=== PATIENT | female | born 1960 | race Caucasian/White ===

== ENCOUNTER 2018-03-23 09:14 | Emergency (ER) | payer MEDICAID ==
[~2018-03-23] VITALS: Ht 165.1 cm; Wt 50.0 kg
[2018-03-23] MEDS ORDERED: SODIUM CHLORIDE 0.9% 1,000 ML IV ONE (10:54)
[2018-03-23] MEDS ORDERED: ONDANSETRON HCL 4MG/2ML VIAL IV STA (10:54)
[2018-03-23] MEDS ORDERED: KETOROLAC 30MG/ML VIAL IV STA (10:54)
[2018-03-23] MEDS ORDERED: MORPHINE SULFATE 4 MG/ML CPJ (NOT FOR IM USE) IV STA (10:54)
[2018-03-23] MEDS ORDERED: FAMOTIDINE 20MG/2ML VIAL IV ONE (11:00)
[2018-03-23] MEDS ORDERED: MAGNESIUM/ALUMINUM HYDROXIDE/SIMETHICONE 30ML UDC PO ONE (11:00)
[2018-03-23 11:51] LABS: CLARITY URINE CLOUDY (CLEAR); COLOR URINE YELLOW (YELLOW); KETONES URINE NEGATIVE (NEGATIVE); LEUKOCYTE ESTERASE URINE 1+ (NEGATIVE); NITRITE URINE NEGATIVE (NEGATIVE); OCCULT BLOOD URINE TRACE (NEGATIVE); PROTEIN URINE TRACE (NEGATIVE); SPECIFIC GRAVITY URINE 1.022 (1.005-1.030)
[2018-03-23 13:10] LABS: BASOPHILS % 0.5 % (0.0-2.0); EOSINOPHILS % 0.9 % (0.0-5.0); HEMATOCRIT. 33.7 % (36.0-48.0); LYMPHOCYTES % 21.2 % (20.0-50.0); MEAN CORPUSCULAR HEMOGLOBIN 29.6 pg (28.0-32.0); MEAN CORPUSCULAR VOLUME 90.5 fL (81.0-99.0); MEAN PLATELET VOLUME 6.7 fl (7.4-10.4); MONOCYTES % 6.1 % (2.0-8.0); NEUTROPHILS % 71.3 % (40.0-76.0); PLATELET 307 x1000/uL (130-400); RED BLOOD CELL COUNT 3.73 mill/uL (4.2-5.4); RED CELL DISTRIBUTION WIDTH 14.9 % (11.6-14.6)
[2018-03-23 13:14] LABS: CHLORIDE 109 mEq/L (98-107)
[2018-03-23 13:27] LABS: INR 1.1; PARTIAL THROMBOPLASTIN TIME 26.8 sec (23.4-31.0); PROTHROMBIN TIME 11.4 sec (9.1-11.1)
[2018-03-23 15:00] VITALS: BP 109/64
== END 2018-03-23 15:30 | disposition home or self-care (01) ==
LOC: ER 09:14
DX: R10.13 Epigastric pain (principal); E83.51 Hypocalcemia; K29.70 Gastritis, unspecified, without bleeding; N39.0 Urinary tract infection, site not specified; Z98.890 Other specified postprocedural states
CPT/HCPCS: 36415; 71045; 76700; 80053; 81003; 83880; 84484; 85025; 85610; 85730; 87086; 93005; 96374; 96375; 99285; J1885; J2270; J2405; J3490; J7030

== ENCOUNTER 2018-08-17 11:52 | Emergency (ER) | payer MEDICAID ==
[~2018-08-17] VITALS: Ht 165.1 cm; Wt 50.0 kg
[2018-08-17] MEDS ORDERED: FAMO-133 PO (12:02)
[2018-08-17] MEDS ORDERED: FAMOTIDINE 20MG/2ML VIAL IV STA (12:21)
[2018-08-17] MEDS ORDERED: KETOROLAC 30MG/ML VIAL IV STA (12:21)
[2018-08-17] MEDS ORDERED: ONDANSETRON HCL 4MG/2ML INJ IV STA (12:21)
[2018-08-17] MEDS ORDERED: SUCRALFATE 1 G/10 ML UDC PO ONE (12:30)
[2018-08-17 13:00] LABS: BASOPHILS % 0.4 % (0.0-2.0); EOSINOPHILS % 1.3 % (0.0-5.0); HEMATOCRIT. 37.9 % (36.0-48.0); HEMOGLOBIN. 12.4 g/dL (12.0-16.0); MEAN CORPUSCULAR HEMOGLOBIN 30.3 pg (28.0-32.0); MEAN CORPUSCULAR VOLUME 92.2 fL (81.0-99.0); MEAN PLATELET VOLUME 6.9 fl (7.4-10.4); MONOCYTES % 6.7 % (2.0-8.0); NEUTROPHILS % 69.6 % (40.0-76.0); PLATELET 393 x1000/uL (130-400); RED BLOOD CELL COUNT 4.11 mill/uL (4.2-5.4); RED CELL DISTRIBUTION WIDTH 13.7 % (11.6-14.6)
[2018-08-17 13:03] LABS: CLARITY URINE CLEAR (CLEAR); COLOR URINE YELLOW (YELLOW); KETONES URINE TRACE (NEGATIVE); LEUKOCYTE ESTERASE URINE NEGATIVE (NEGATIVE); NITRITE URINE NEGATIVE (NEGATIVE); OCCULT BLOOD URINE TRACE (NEGATIVE); PROTEIN URINE TRACE (NEGATIVE); SPECIFIC GRAVITY URINE 1.026 (1.005-1.030)
[2018-08-17 13:06] LABS: CHLORIDE 102 mEq/L (98-107)
[2018-08-17 13:08] LABS: INR 1.1; PROTHROMBIN TIME 10.6 sec (9.1-11.1)
[2018-08-17] MEDS ORDERED: DIPHENHYDRAMINE 25MG CAPSULE PO ONE (13:15)
[2018-08-17 14:19] VITALS: BP 114/57
== END 2018-08-17 14:19 | disposition home or self-care (01) ==
LOC: ER 13:27
DX: K27.9 Peptic ulcer, site unspecified, unspecified as acute or chronic, without hemorrhage or perforation (principal); Z98.890 Other specified postprocedural states
CPT/HCPCS: 36415; 80053; 81003; 83690; 85025; 85610; 96374; 96375; 99283; J1885; J2405; J3490; Q0163

== ENCOUNTER 2019-01-25 10:03 | Emergency (ER) | payer MEDICAID ==
[~2019-01-25] VITALS: Ht 165.1 cm; Wt 55.0 kg
[~2019-01-25 10:03] MED LIST: FAMO-133 PO
[2019-01-25] MEDS ORDERED: FAMOTIDINE 20MG/2ML VIAL IV STA (11:13)
[2019-01-25] MEDS ORDERED: MAGNESIUM/ALUMINUM HYDROXIDE/SIMETHICONE 30ML UDC PO STA (11:13)
[2019-01-25 11:33] LABS: BASOPHILS % 0.6 % (0.0-2.0); EOSINOPHILS % 0.9 % (0.0-5.0); HEMATOCRIT. 35.2 % (36.0-48.0); HEMOGLOBIN. 11.7 g/dL (12.0-16.0); LYMPHOCYTES % 18.1 % (20.0-50.0); MEAN CORPUSCULAR HEMOGLOBIN 30.3 pg (28.0-32.0); MEAN CORPUSCULAR VOLUME 90.8 fL (81.0-99.0); MEAN PLATELET VOLUME 6.5 fl (7.4-10.4); MONOCYTES % 6.3 % (2.0-8.0); NEUTROPHILS % 74.1 % (40.0-76.0); PLATELET 355 x1000/uL (130-400); RED BLOOD CELL COUNT 3.87 mill/uL (4.2-5.4); RED CELL DISTRIBUTION WIDTH 14.6 % (11.6-14.6)
[2019-01-25 11:41] LABS: CHLORIDE 109 mEq/L (98-107)
[2019-01-25 11:42] LABS: PROTHROMBIN TIME 10.6 sec (9.6-11.0)
[2019-01-25 12:08] LABS: CLARITY URINE CLEAR (CLEAR); COLOR URINE YELLOW (YELLOW); KETONES URINE TRACE (NEGATIVE); LEUKOCYTE ESTERASE URINE NEGATIVE (NEGATIVE); NITRITE URINE NEGATIVE (NEGATIVE); OCCULT BLOOD URINE NEGATIVE (NEGATIVE); PROTEIN URINE NEGATIVE (NEGATIVE); SPECIFIC GRAVITY URINE 1.025 (1.005-1.030)
[2019-01-25 14:25] VITALS: BP 118/58
== END 2019-01-25 14:22 | disposition home or self-care (01) ==
LOC: ER 10:03
DX: J94.8 Other specified pleural conditions (principal); G89.29 Other chronic pain; R10.13 Epigastric pain; L29.2 Pruritus vulvae; Z87.891 Personal history of nicotine dependence; Z79.899 Other long term (current) drug therapy; Z98.890 Other specified postprocedural states
CPT/HCPCS: 36415; 71045; 74176; 80053; 81003; 83690; 85025; 85610; 96374; 99284; J3490; Z7610

== ENCOUNTER 2019-10-13 10:38 | Emergency (ER) | payer MEDICAID ==
[~2019-10-13] VITALS: Ht 165.1 cm; Wt 50.0 kg
[2019-10-13 10:48] VITALS: BP 109/62
[2019-10-13 11:21] LABS: CLARITY URINE CLEAR (CLEAR); COLOR URINE YELLOW (YELLOW); KETONES URINE TRACE (NEGATIVE); LEUKOCYTE ESTERASE URINE NEGATIVE (NEGATIVE); NITRITE URINE NEGATIVE (NEGATIVE); OCCULT BLOOD URINE NEGATIVE (NEGATIVE); PROTEIN URINE NEGATIVE (NEGATIVE); SPECIFIC GRAVITY URINE 1.023 (1.005-1.030)
[2019-10-13 11:33] LABS: CHLORIDE 105 mEq/L (98-107)
[2019-10-13 11:34] LABS: PROTHROMBIN TIME 10.9 sec (9.6-11.0)
[2019-10-13 11:39] LABS: BASOPHILS % 0.5 % (0.0-2.0); HEMATOCRIT. 37.8 % (36.0-48.0); HEMOGLOBIN. 12.7 g/dL (12.0-16.0); LYMPHOCYTES % 24.3 % (20.0-50.0); MEAN CORPUSCULAR HEMOGLOBIN 30.7 pg (28.0-32.0); MEAN CORPUSCULAR VOLUME 91.5 fL (81.0-99.0); MEAN PLATELET VOLUME 6.7 fl (7.4-10.4); MONOCYTES % 6.4 % (2.0-8.0); NEUTROPHILS % 67.8 % (40.0-76.0); PLATELET 364 x1000/uL (130-400); RED BLOOD CELL COUNT 4.14 mill/uL (4.2-5.4); RED CELL DISTRIBUTION WIDTH 13.9 % (11.6-14.6)
[2019-10-13] MEDS ORDERED: ONDANSETRON HCL 4MG TABLET PO ONE (11:45)
[2019-10-13] MEDS ORDERED: ACETAMINOPHEN 325MG TABLET PO ONE (11:45)
== END 2019-10-13 12:29 | disposition left against medical advice (07) ==
LOC: ER 10:45
DX: R10.13 Epigastric pain (principal); Z87.11 Personal history of peptic ulcer disease; Z98.890 Other specified postprocedural states
CPT/HCPCS: 36415; 80053; 81003; 85025; 99283; Q0162

== ENCOUNTER 2021-10-08 10:26 | Emergency (ER) | payer MEDICAID ==
[~2021-10-08] VITALS: Ht 165.1 cm; Wt 54.0 kg
[~2021-10-08 10:26] MED LIST changes: -FAMO-133 PO; +FAMO-287 PO
[2021-10-08] MEDS ORDERED: FAMOTIDINE 20MG/2ML VIAL IV STA (11:15)
[2021-10-08] MEDS ORDERED: VISCOUS LIDOCAINE 2% 15 ML UDC PO STA (11:15)
[2021-10-08] MEDS ORDERED: MORPHINE SULFATE 4 MG/ML CPJ (NOT FOR IM USE) IV STA (11:15)
[2021-10-08] MEDS ORDERED: SODIUM CHLORIDE 0.9% 500 ML IV ONE (11:15)
[2021-10-08] MEDS ORDERED: MAGNESIUM/ALUMINUM HYDROXIDE/SIMETHICONE 30ML UDC PO STA (11:15)
[2021-10-08 11:42] LABS: CHLORIDE 105 mEq/L (98-107)
[2021-10-08 11:46] LABS: BASOPHILS % 0.5 % (0.0-2.0); EOSINOPHILS % 3.3 % (0.0-5.0); HEMATOCRIT. 37.1 % (36.0-48.0); HEMOGLOBIN. 12.2 g/dL (12.0-16.0); LYMPHOCYTES % 19.1 % (20.0-50.0); MEAN CORPUSCULAR HEMOGLOBIN 30.1 pg (28.0-32.0); MEAN CORPUSCULAR VOLUME 91.3 fL (81.0-99.0); MEAN PLATELET VOLUME 6.9 fl (7.4-10.4); MONOCYTES % 5.6 % (2.0-8.0); NEUTROPHILS % 71.5 % (40.0-76.0); PLATELET 344 x1000/uL (130-400); RED BLOOD CELL COUNT 4.06 mill/uL (4.2-5.4); RED CELL DISTRIBUTION WIDTH 14.1 % (11.6-14.6)
[2021-10-08] MEDS ORDERED: FAMO-135 MT (13:31)
[2021-10-08 14:11] VITALS: BP 121/68
== END 2021-10-08 14:11 | disposition home or self-care (01) ==
LOC: ER 10:26
DX: K29.70 Gastritis, unspecified, without bleeding (principal); F17.200 Nicotine dependence, unspecified, uncomplicated; Z98.890 Other specified postprocedural states
CPT/HCPCS: 36415; 71045; 76705; 80053; 83690; 83880; 84484; 85025; 96361; 96374; 96375; 99285; J2270; J3490; J7030

== ENCOUNTER 2021-12-12 11:37 | Emergency (ER) | payer MEDICAID ==
[~2021-12-12] VITALS: Ht 165.1 cm; Wt 48.0 kg
[~2021-12-12 11:37] MED LIST changes: +FAMO-135 MT
[2021-12-12 11:51] VITALS: BP 102/55
[2021-12-12] MEDS ORDERED: IBUPROFEN 400MG TABLET PO ONE (13:00)
[2021-12-12] MEDS ORDERED: IBUP-2028 MT (14:33)
== END 2021-12-12 15:08 | disposition home or self-care (01) ==
LOC: ER 11:37
DX: M79.672 Pain in left foot (principal)
CPT/HCPCS: 73630; 99283; Z7610

== ENCOUNTER 2021-12-31 11:06 | Emergency (ER) | payer MEDICAID ==
[~2021-12-31] VITALS: Ht 165.1 cm; Wt 50.0 kg
[~2021-12-31 11:06] MED LIST changes: +IBUP-2028 MT
[2021-12-31 11:29] VITALS: BP 111/67
[2021-12-31 14:46] LABS: BASOPHILS % 0.4 % (0.0-2.0); EOSINOPHILS % 1.2 % (0.0-5.0); HEMATOCRIT. 35.3 % (36.0-48.0); HEMOGLOBIN. 11.5 g/dL (12.0-16.0); LYMPHOCYTES % 24.2 % (20.0-50.0); MEAN CORPUSCULAR HEMOGLOBIN 29.9 pg (28.0-32.0); MEAN CORPUSCULAR VOLUME 91.7 fL (81.0-99.0); MEAN PLATELET VOLUME 6.9 fl (7.4-10.4); MONOCYTES % 5.4 % (2.0-8.0); NEUTROPHILS % 68.8 % (40.0-76.0); PLATELET 343 x1000/uL (130-400); RED BLOOD CELL COUNT 3.85 mill/uL (4.2-5.4); RED CELL DISTRIBUTION WIDTH 13.6 % (11.6-14.6)
[2021-12-31 14:57] LABS: CHLORIDE 107 mEq/L (98-107)
== END 2021-12-31 16:59 | disposition home or self-care (01) ==
LOC: ER 11:06
DX: M79.672 Pain in left foot (principal); Z98.890 Other specified postprocedural states
CPT/HCPCS: 36415; 80053; 85025; 93005; 93922; 99285